=== PATIENT | male | born 1950 | race Caucasian/White ===

== ENCOUNTER 2016-05-25 14:21 | Emergency (ER) | payer OTHER ==
[~2016-05-25] VITALS: Ht 165.1 cm; Wt 62.7 kg
[~2016-05-25 14:21] MED LIST: ASPI-556 PO; CARB-101 PO; DOCU-119 PO; GABA-531 PO; METF500T4 PO; OMEP20 PO
[2016-05-25] MEDS ORDERED: LISI-661 PO (14:31)
[2016-05-25] MEDS ORDERED: TRAZ-144 PO (14:31)
[2016-05-25] MEDS ORDERED: FINA5TAB41 PO (14:31)
[2016-05-25] MEDS ORDERED: SELE5TAB10 PO (14:31)
[2016-05-25] MEDS ORDERED: GLIM2 PO (14:31)
[2016-05-25] MEDS ORDERED: SERT50TA12 PO (14:31)
[2016-05-25] MEDS ORDERED: TAMS0.4C32 PO (14:31)
[2016-05-25 14:32] LABS: GLUCOSE,POINT OF CARE 85 MG/DL (70-110)
[2016-05-25 15:28] LABS: BASOPHILS % (AUTO) 0.3 % (0.0-2.0); EOSINOPHILS % (AUTO) 1.6 % (1.0-6.0); HEMOGLOBIN 15.1 g/dL (13.5-17.5); LYMPHOCYTES # (AUTO) 1.1 K/uL (1.0-4.8); LYMPHOCYTES % (AUTO) 15.1 % (22.0-44.0); MEAN CORPUSCULAR HGB CONC 32.2 G/dL (31.0-37.0); MEAN CORPUSCULAR VOLUME 87 fL (80-100); MONOCYTES # (AUTO) 0.8 K/uL (0.1-1.0); MONOCYTES % (AUTO) 11.4 % (2.0-9.0); NEUTROPHILS # (AUTO) 5.2 K/uL (1.8-7.7); NEUTROPHILS % (AUTO) 71.6 % (40.0-70.0); PLATELET COUNT (AUTO) 260 K/uL (150-450); RED CELL DISTRIBUTION WIDTH 14.3 % (11.5-14.5); WHITE BLOOD COUNT (AUTO) 7.3 K/uL (4.5-11.0)
[2016-05-25 15:42] LABS: ANION GAP 16 mmol/L (8-16); CALCIUM, TOTAL 9.1 mg/dL (8.8-10.5); CARBON DIOXIDE 26 mmol/L (22-29); CHLORIDE 99 mmol/L (98-107); CREATININE 1.28 mg/dL (0.60-1.30); GLOMERULAR FILTR. RATE CALC 57 mL/min (>60); SODIUM SERUM 141 mmol/L (136-145); UREA NITROGEN, BLOOD 23 mg/dL (7-18)
[2016-05-25 15:48] LABS: ALANINE AMINOTRANSFERASE 12 U/L (12-78); ALBUMIN 3.9 g/dL (3.4-5.0); ASPARTATE AMINOTRANSFERASE 23 U/L (15-37); BILIRUBIN,TOTAL 0.6 mg/dL (0.1-1.0)
[2016-05-25] MEDS ORDERED: MORPHINE SULFATE 4 MG/ML SYRINGE IVP ONE (17:30)
[2016-05-25] MEDS ORDERED: ONDANSETRON HCL 4 MG/2 ML VIAL IVP ONE (17:30)
[2016-05-25] MEDS ORDERED: MORPHINE SULFATE 2 MG/ML SYRINGE IVP ONE (17:30)
[2016-05-25] MEDS ORDERED: SODIUM CHLORIDE 0.9% 1,000 ML IV ONE (17:30)
[2016-05-25 18:22] LABS: APPEARANCE,URINE CLEAR (CLEAR); GLUCOSE, URINE (UA) NEGATIVE (NEGATIVE); KETONES,URINE 40 mg/dL (NEGATIVE); LEUKOCYTE ESTERASE ,URINE NEGATIVE (NEGATIVE); OCCULT BLOOD,URINE NEGATIVE (NEGATIVE); PROTEIN,URINE POS 1+ (NEGATIVE)
[2016-05-25 18:25] LABS: ADD UA MICROSCOPIC NO
[2016-05-25 18:28] LABS: CREATINE KINASE MB 3.4 ng/mL (0-5); CREATINE KINASE, TOTAL 370 U/L (39-308)
[2016-05-25 20:19] VITALS: BP 132/80
== END 2016-05-25 20:23 | disposition home or self-care (01) ==
LOC: EMS 14:23
DX: G20 Parkinson's disease (principal); M60.9 Myositis, unspecified; R07.9 Chest pain, unspecified; E11.9 Type 2 diabetes mellitus without complications; T42.8X5A Adverse effect of antiparkinsonism drugs and other central muscle-tone depressants, initial encounter; I10 Essential (primary) hypertension; Z79.82 Long term (current) use of aspirin; Y92.89 Other specified places as the place of occurrence of the external cause
CPT/HCPCS: 36415; 71010; 80053; 81003; 82550; 82553; 82962; 84484; 85025; 86140; 93005; 96361; 96374; 96375; 99291; J2270; J2405; J7030

== ENCOUNTER 2017-10-20 11:58 | Inpatient (IN) | payer OTHER ==
[~2017-10-20] VITALS: Ht 152.4 cm; Wt 57.7 kg
[~2017-10-20 11:58] MED LIST changes: +FINA5TAB41 PO; +GLIM2 PO; +LISI-661 PO; -METF500T4 PO; +METF500T6 PO; +SELE5TAB10 PO; +SERT50TA12 PO; +TAMS0.4C32 PO; +TRAZ-219 PO
[2017-10-20 12:13] LABS: GLUCOSE,POINT OF CARE 188 MG/DL (70-110)
[2017-10-20 13:09] LABS: BASOPHILS % (AUTO) 0.3 % (0.0-2.0); EOSINOPHILS % (AUTO) 0.1 % (1.0-6.0); HEMATOCRIT 42.3 % (41-53); HEMOGLOBIN 14.6 g/dL (13.5-17.5); LYMPHOCYTES # (AUTO) 0.4 K/uL (1.0-4.8); LYMPHOCYTES % (AUTO) 4.1 % (22.0-44.0); MEAN CORPUSCULAR HEMOGLOBIN 29.4 pg (26.0-34.0); MEAN CORPUSCULAR HGB CONC 34.6 G/dL (31.0-37.0); MEAN CORPUSCULAR VOLUME 85 fL (80-100); MONOCYTES # (AUTO) 0.8 K/uL (0.1-1.0); MONOCYTES % (AUTO) 7.6 % (2.0-9.0); NEUTROPHILS # (AUTO) 9.4 K/uL (1.8-7.7); PLATELET COUNT (AUTO) 181 K/uL (150-450); RED BLOOD CELL COUNT(AUTO) 4.96 MIL/uL (4.50-5.90); RED CELL DISTRIBUTION WIDTH 14.7 % (11.5-14.5)
[2017-10-20 13:28] LABS: ANION GAP 11 mmol/L (8-16); B-TYPE NATRIURETIC PEPTIDE 15 pg/mL (0-100); CALCIUM, TOTAL 8.9 mg/dL (8.8-10.5); CARBON DIOXIDE 27 mmol/L (22-29); CHLORIDE 100 mmol/L (98-107); CREATININE 1.08 mg/dL (0.60-1.30); GLOMERULAR FILTR. RATE CALC > 60 mL/min (>60); GLUCOSE,RANDOM 154 mg/dL (70-110); POTASSIUM 4.3 mmol/L (3.5-5.1); SODIUM SERUM 138 mmol/L (136-145); UREA NITROGEN, BLOOD 14 mg/dL (7-18)
[2017-10-20 13:30] LABS: NEUTROPHILS % (AUTO) 87.9 % (40.0-70.0)
[2017-10-20] MEDS ORDERED: ASPIRIN 81 MG CHEWABLE TABLET PO ONE (13:30)
[2017-10-20] MEDS ORDERED: IBUPROFEN 600 MG TABLET PO ONE (13:30)
[2017-10-20 13:49] LABS: PROTHROMBIN TIME 10.1 SEC (9.4-11.6)
[2017-10-20 13:51] LABS: ALANINE AMINOTRANSFERASE 15 U/L (12-78); ALBUMIN 3.5 g/dL (3.4-5.0); ALKALINE PHOSPHATASE 67 U/L (46-116); ASPARTATE AMINOTRANSFERASE 15 U/L (15-37); BILIRUBIN,TOTAL 0.7 mg/dL (0.1-1.0); CREATINE KINASE MB 1.2 ng/mL (0-5); CREATINE KINASE, TOTAL 96 U/L (39-308); TOTAL PROTEIN, SERUM 7.4 g/dL (6.4-8.2)
[2017-10-20 14:16] LABS: APPEARANCE,URINE CLEAR (CLEAR); BILIRUBIN,URINE NEGATIVE (NEGATIVE); GLUCOSE, URINE (UA) 250 mg/dL (NEGATIVE); KETONES,URINE NEGATIVE (NEGATIVE); LEUKOCYTE ESTERASE ,URINE NEGATIVE (NEGATIVE); NITRATE,URINE NEGATIVE (NEGATIVE); OCCULT BLOOD,URINE NEGATIVE (NEGATIVE); PH,URINE 5.5 (5.0-8.0); PROTEIN,URINE POS 1+ (NEGATIVE); UROBILINOGEN,URINE 0.2 mg/dL (<=1.0)
[2017-10-20 14:32] LABS: BACTERIA,URINE Rare /HPF (None Seen); RBC,URINE 0-2 /HPF (0-2); SQUAMOUS EPITHELIAL CELL,UR Few /LPF (None Seen); WBC,URINE 0-2 /HPF (0-5)
[2017-10-20] MEDS ORDERED: METOPROLOL TARTRATE 25 MG TABLET PO ONE (16:00)
[2017-10-20] MEDS ORDERED: HEPARIN SODIUM 25000 UNITS/D5W 250 ML IV PRN (16:07)
[2017-10-20] MEDS ORDERED: HYDROCODONE/ACETAMINOPHEN 5-325 MG TABLET PO PRN (16:15)
[2017-10-20] MEDS ORDERED: ACETAMINOPHEN 325 MG TABLET PO PRN (16:15)
[2017-10-20] MEDS ORDERED: HEPARIN SODIUM,PORCINE 5,000 UNITS/ML VIAL IVP ONE ×2 (16:15→16:30)
[2017-10-20] MEDS ORDERED: BISACODYL 10 MG RECTAL RECTAL SUPPOSITORY PR PRN (16:15)
[2017-10-20] MEDS ORDERED: NITROGLYCERIN 2% (1 GM=INCH) PACKET TP ONE (16:15)
[2017-10-20] MEDS ORDERED: ONDANSETRON HCL 4 MG/2 ML VIAL IVP PRN (16:15)
[2017-10-20] MEDS ORDERED: MAGNESIUM HYDROXIDE SUSPENSION 30 ML UDCUP PO PRN (16:15)
[2017-10-20] MEDS ORDERED: MORPHINE SULFATE 2 MG/ML SYRINGE IVP PRN (16:15)
[2017-10-20] MEDS ORDERED: ZOLPIDEM TARTRATE 5 MG TABLET PO PRN (16:15)
[2017-10-20] MEDS ORDERED: HEPARIN SODIUM,PORCINE 5,000 UNITS/ML VIAL IVP PRN ×2 (16:15)
[2017-10-20 17:04] VITALS: BP 135/81
[2017-10-20] MEDS ORDERED: PNEUMOCOCCAL VACCINE POLYVALENT 0.5 ML VIAL [PPSV23] IM ONE (18:30)
[2017-10-20] MEDS ORDERED: SODIUM CHLORIDE 0.9% 250 ML IV ONE (18:45)
[2017-10-20 20:17] VITALS: BP 100/62
[2017-10-20] MEDS: TraZODone HCL 50 MG TABLET PO SCH (20:30)
[2017-10-20] MEDS: DOCUSATE SODIUM 100 MG CAPSULE PO SCH (20:30)
[2017-10-20] MEDS: TAMSULOSIN HCL 0.4 MG CAPSULE PO SCH (20:31)
[2017-10-20] MEDS: GABAPENTIN 300 MG CAPSULE PO SCH (20:31)
[2017-10-20] MEDS: SELEGILINE HCL 5 MG TABLET PO SCH (20:31)
[2017-10-20] MEDS: SERTRALINE HCL 50 MG TABLET PO SCH (20:31)
[2017-10-20] MEDS: CARBIDOPA/LEVODOPA 25-100 MG TABLET PO SCH (20:32)
[2017-10-21] VITALS (8 sets, daily range): BP systolic 89–114; BP diastolic 53–71
[2017-10-21 06:42] LABS: BASOPHILS % (AUTO) 0.2 % (0.0-2.0); EOSINOPHILS % (AUTO) 1.4 % (1.0-6.0); HEMATOCRIT 39.6 % (41-53); HEMOGLOBIN 13.3 g/dL (13.5-17.5); LYMPHOCYTES # (AUTO) 0.9 K/uL (1.0-4.8); LYMPHOCYTES % (AUTO) 13.2 % (22.0-44.0); MEAN CORPUSCULAR HEMOGLOBIN 29.5 pg (26.0-34.0); MEAN CORPUSCULAR HGB CONC 33.6 G/dL (31.0-37.0); MEAN CORPUSCULAR VOLUME 88 fL (80-100); MONOCYTES # (AUTO) 0.8 K/uL (0.1-1.0); NEUTROPHILS # (AUTO) 5.3 K/uL (1.8-7.7); NEUTROPHILS % (AUTO) 74.2 % (40.0-70.0); PLATELET COUNT (AUTO) 166 K/uL (150-450); RED BLOOD CELL COUNT(AUTO) 4.52 MIL/uL (4.50-5.90); RED CELL DISTRIBUTION WIDTH 14.2 % (11.5-14.5)
[2017-10-21 07:14] LABS: ANION GAP 6 mmol/L (8-16); CALCIUM, TOTAL 8.7 mg/dL (8.8-10.5); CARBON DIOXIDE 29 mmol/L (22-29); CHLORIDE 103 mmol/L (98-107); CHOL/HDL RATIO 2.5 (4.2-7.3); CHOLESTEROL 145 mg/dL (131-200); GLOMERULAR FILTR. RATE CALC > 60 mL/min (>60); GLUCOSE,RANDOM 126 mg/dL (70-110); HDL CHOLESTEROL 58 mg/dL (40-60); LDL CHOL (CALC.) 71 mg/dL (0-130); POTASSIUM 4.2 mmol/L (3.5-5.1); SODIUM SERUM 138 mmol/L (136-145); THYROID STIMULATING HORMONE 0.99 uIU/mL (0.36-3.74); TRIGLYCERIDES 79 mg/dL (15-150); UREA NITROGEN, BLOOD 19 mg/dL (7-18)
[2017-10-21] MEDS ORDERED: HEPARIN SODIUM,PORCINE 5,000 UNITS/ML VIAL IVP PRN ×3 (07:45)
[2017-10-21] MEDS ORDERED: HEPARIN SODIUM,PORCINE 5,000 UNITS/ML VIAL SQ SCH (08:00)
[2017-10-21] MEDS: HEPARIN SODIUM 25000 UNITS/D5W 250 ML IV PRN ×2 (08:01→16:37)
[2017-10-21 08:18] LABS: PROTHROMBIN TIME 10.4 SEC (9.4-11.6)
[2017-10-21] MEDS: DOCUSATE SODIUM 100 MG CAPSULE PO SCH ×2 (08:22→21:08)
[2017-10-21] MEDS: GABAPENTIN 300 MG CAPSULE PO SCH ×3 (08:22→21:08)
[2017-10-21] MEDS: FINASTERIDE 5 MG TABLET PO SCH (08:22)
[2017-10-21] MEDS: LISINOPRIL 10 MG TABLET PO SCH (08:22)
[2017-10-21] MEDS: OMEPRAZOLE 20 MG CAPSULE PO SCH (08:22)
[2017-10-21] MEDS: SELEGILINE HCL 5 MG TABLET PO SCH ×2 (08:23→21:07)
[2017-10-21] MEDS: ASPIRIN 81 MG CHEWABLE TABLET PO SCH (08:23)
[2017-10-21] MEDS: GLIMEPIRIDE 2 MG TABLET PO SCH (08:23)
[2017-10-21] MEDS: CARBIDOPA/LEVODOPA 25-100 MG TABLET PO SCH ×2 (08:24→21:08)
[2017-10-21] MEDS ORDERED: PANTOPRAZOLE SODIUM 40 MG DR TABLET PO SCH (09:00)
[2017-10-21] MEDS: ATORVASTATIN CALCIUM 40 MG TABLET PO SCH (10:59)
[2017-10-21] MEDS ORDERED: INSULIN LISPRO 100 UNITS/ML SQ PRN (14:15)
[2017-10-21] MEDS ORDERED: DEXTROSE 50%-WATER 25 GM/50 ML SYRINGE IVP PRN (14:15)
[2017-10-21 20:13] LABS: GLUCOMETER DEV NAME(LOC) 5S 2Q; GLUCOSE,POINT OF CARE 110 MG/DL (70-110)
[2017-10-21] MEDS: TraZODone HCL 50 MG TABLET PO SCH (21:08)
[2017-10-21] MEDS: SERTRALINE HCL 50 MG TABLET PO SCH (21:08)
[2017-10-21] MEDS: TAMSULOSIN HCL 0.4 MG CAPSULE PO SCH (21:08)
[2017-10-21 21:34] LABS: GLUCOMETER DEV NAME(LOC) 5S 2Q; GLUCOSE,POINT OF CARE 142 MG/DL (70-110)
[2017-10-22] VITALS (15 sets, daily range): BP systolic 102–145; BP diastolic 64–84
[2017-10-22 06:46] LABS: BASOPHILS % (AUTO) 0.4 % (0.0-2.0); HEMATOCRIT 42.3 % (41-53); HEMOGLOBIN 14.5 g/dL (13.5-17.5); LYMPHOCYTES # (AUTO) 1.1 K/uL (1.0-4.8); LYMPHOCYTES % (AUTO) 14.5 % (22.0-44.0); MEAN CORPUSCULAR HEMOGLOBIN 29.6 pg (26.0-34.0); MEAN CORPUSCULAR HGB CONC 34.3 G/dL (31.0-37.0); MEAN CORPUSCULAR VOLUME 86 fL (80-100); MONOCYTES # (AUTO) 0.8 K/uL (0.1-1.0); MONOCYTES % (AUTO) 10.3 % (2.0-9.0); NEUTROPHILS # (AUTO) 5.5 K/uL (1.8-7.7); NEUTROPHILS % (AUTO) 73.8 % (40.0-70.0); PLATELET COUNT (AUTO) 195 K/uL (150-450); RED CELL DISTRIBUTION WIDTH 14.4 % (11.5-14.5)
[2017-10-22 07:01] LABS: ANION GAP 7 mmol/L (8-16); CALCIUM, TOTAL 9.1 mg/dL (8.8-10.5); CARBON DIOXIDE 28 mmol/L (22-29); CHLORIDE 104 mmol/L (98-107); CREATININE 1.16 mg/dL (0.60-1.30); GLOMERULAR FILTR. RATE CALC > 60 mL/min (>60); GLUCOSE,RANDOM 130 mg/dL (70-110); SODIUM SERUM 139 mmol/L (136-145); UREA NITROGEN, BLOOD 16 mg/dL (7-18)
[2017-10-22] MEDS: GLIMEPIRIDE 2 MG TABLET PO SCH (08:00)
[2017-10-22] MEDS ORDERED: LIDOCAINE HCL/PF 1% 30 ML VIAL ONE (08:21)
[2017-10-22] MEDS ORDERED: SODIUM BICARBONATE 50 MEQ/50 ML VIAL ONE (08:21)
[2017-10-22] MEDS ORDERED: IOHEXOL 300 MG/ML 150 ML VIAL ONE (08:21)
[2017-10-22] MEDS ORDERED: HEPARIN SODIUM 1000 UNITS/NS 1,000 ML ONE (08:21)
[2017-10-22] MEDS ORDERED: HEPARIN SODIUM,PORCINE 1,000 UNITS/ML 10 ML VIAL ONE (09:10)
[2017-10-22] MEDS ORDERED: NITROGLYCERIN 50 MG/D5% WATER 0 ML ONE (09:10)
[2017-10-22] MEDS ORDERED: MIDAZOLAM HCL 2 MG/2 ML VIAL ONE (09:10)
[2017-10-22] MEDS ORDERED: VERAPAMIL HCL 2.5 MG/ML 2 ML VIAL ONE (09:10)
[2017-10-22] MEDS ORDERED: FentaNYL CITRATE-PF 100 MCG/2 ML VIAL ONE (09:10)
[2017-10-22] MEDS ORDERED: IOHEXOL 300 MG/ML 100 ML VIAL ONE (09:11)
[2017-10-22] MEDS ORDERED: SODIUM CHLORIDE 0.9% 500 ML IV ONE (09:15)
[2017-10-22] MEDS ORDERED: HEPARIN SODIUM 2,000 UNITS in HEPARIN SODIUM 1000 UNITS/NS 1,000 ML IARTER ONE (09:18)
[2017-10-22] MEDS ORDERED: LIDOCAINE 1% 30 ML/SOD BICARB 8.4% 4 ML SQ ONE (09:18)
[2017-10-22] MEDS ORDERED: IOHEXOL 300 MG/ML 150 ML VIAL IARTER ONE (09:21)
[2017-10-22] MEDS: DOCUSATE SODIUM 100 MG CAPSULE PO SCH ×2 (10:27→21:10)
[2017-10-22] MEDS: GABAPENTIN 300 MG CAPSULE PO SCH ×3 (10:27→21:10)
[2017-10-22] MEDS: ATORVASTATIN CALCIUM 40 MG TABLET PO SCH (10:27)
[2017-10-22] MEDS: CARBIDOPA/LEVODOPA 25-100 MG TABLET PO SCH ×4 (10:28→22:00)
[2017-10-22] MEDS: SELEGILINE HCL 5 MG TABLET PO SCH ×2 (10:28→21:10)
[2017-10-22] MEDS: OMEPRAZOLE 20 MG CAPSULE PO SCH (10:29)
[2017-10-22] MEDS: FINASTERIDE 5 MG TABLET PO SCH (10:30)
[2017-10-22] MEDS: ASPIRIN 81 MG CHEWABLE TABLET PO SCH (10:30)
[2017-10-22] MEDS: LISINOPRIL 10 MG TABLET PO SCH (10:41)
[2017-10-22] MEDS: METOPROLOL SUCCINATE 25 MG ER TABLET PO SCH (10:41)
[2017-10-22] MEDS ORDERED: ATORVASTATIN CALCIUM 40 MG TABLET PO SCH (11:00)
[2017-10-22] MEDS ORDERED: PNEUMOCOCCAL VACCINE POLYVALENT 0.5 ML VIAL [PPSV23] IM ONE (14:30)
[2017-10-22] MEDS ORDERED: CARB-38 PO (16:42)
[2017-10-22] MEDS: TAMSULOSIN HCL 0.4 MG CAPSULE PO SCH (21:10)
[2017-10-22] MEDS: SERTRALINE HCL 50 MG TABLET PO SCH (21:11)
[2017-10-22] MEDS: TraZODone HCL 50 MG TABLET PO SCH (21:11)
[2017-10-22 23:24] LABS: GLUCOMETER DEV NAME(LOC) 5S 2Q; GLUCOSE,POINT OF CARE 114 MG/DL (70-110)
[2017-10-22 23:24] LABS: GLUCOMETER DEV NAME(LOC) 5S 2Q; GLUCOSE,POINT OF CARE 104 MG/DL (70-110)
[2017-10-23 04:54] VITALS: BP 100/60
[2017-10-23] MEDS: CARBIDOPA/LEVODOPA 25-100 MG TABLET PO SCH ×4 (05:51→12:13)
[2017-10-23 05:57] LABS: BASOPHILS % (AUTO) 0.1 % (0.0-2.0); EOSINOPHILS % (AUTO) 0.1 % (1.0-6.0); HEMATOCRIT 42.2 % (41-53); HEMOGLOBIN 14.5 g/dL (13.5-17.5); LYMPHOCYTES # (AUTO) 0.7 K/uL (1.0-4.8); LYMPHOCYTES % (AUTO) 7.6 % (22.0-44.0); MEAN CORPUSCULAR HEMOGLOBIN 29.9 pg (26.0-34.0); MEAN CORPUSCULAR HGB CONC 34.2 G/dL (31.0-37.0); MEAN CORPUSCULAR VOLUME 87 fL (80-100); MONOCYTES # (AUTO) 0.9 K/uL (0.1-1.0); MONOCYTES % (AUTO) 10.5 % (2.0-9.0); NEUTROPHILS # (AUTO) 7.3 K/uL (1.8-7.7); NEUTROPHILS % (AUTO) 81.7 % (40.0-70.0); PLATELET COUNT (AUTO) 201 K/uL (150-450); RED BLOOD CELL COUNT(AUTO) 4.84 MIL/uL (4.50-5.90); RED CELL DISTRIBUTION WIDTH 14.3 % (11.5-14.5)
[2017-10-23 06:13] LABS: CALCIUM, TOTAL 8.8 mg/dL (8.8-10.5); CREATININE 1.22 mg/dL (0.60-1.30); POTASSIUM 3.8 mmol/L (3.5-5.1)
[2017-10-23 07:28] VITALS: BP 109/62
[2017-10-23] MEDS: GLIMEPIRIDE 2 MG TABLET PO SCH (07:58)
[2017-10-23] MEDS: DOCUSATE SODIUM 100 MG CAPSULE PO SCH (07:59)
[2017-10-23] MEDS: ASPIRIN 81 MG CHEWABLE TABLET PO SCH (07:59)
[2017-10-23] MEDS: ATORVASTATIN CALCIUM 40 MG TABLET PO SCH (08:00)
[2017-10-23] MEDS: GABAPENTIN 300 MG CAPSULE PO SCH (08:01)
[2017-10-23] MEDS: METOPROLOL SUCCINATE 25 MG ER TABLET PO SCH (08:01)
[2017-10-23] MEDS: OMEPRAZOLE 20 MG CAPSULE PO SCH (08:01)
[2017-10-23] MEDS: FINASTERIDE 5 MG TABLET PO SCH (08:01)
[2017-10-23] MEDS: LISINOPRIL 10 MG TABLET PO SCH (08:02)
[2017-10-23] MEDS: SELEGILINE HCL 5 MG TABLET PO SCH (08:03)
[2017-10-23] MEDS ORDERED: METO25XL PO (11:31)
[2017-10-23 11:40] VITALS: BP 127/72
[2017-10-24 21:49] LABS: GLUCOMETER DEV NAME(LOC) 5N 2S; GLUCOSE,POINT OF CARE 100 MG/DL (70-110)
[2017-10-24 21:49] LABS: GLUCOMETER DEV NAME(LOC) 5N 2S; GLUCOSE,POINT OF CARE 132 MG/DL (70-110)
[2017-10-24 21:49] LABS: GLUCOMETER DEV NAME(LOC) 5N 2S; GLUCOSE,POINT OF CARE 107 MG/DL (70-110)
== END 2017-10-23 12:35 | disposition home or self-care (01) | DRG 281 ==
LOC: EMS 11:59 → 5S 16:01
PROVIDERS: ADMIT Internal Medicine; ATTEND Internal Medicine
PROC: 4A023N7 Measurement of Cardiac Sampling and Pressure, Left Heart, Percutaneous Approach (ICD-10-PCS; principal; 2017-10-22)
PROC: B2111ZZ Fluoroscopy of Multiple Coronary Arteries using Low Osmolar Contrast (ICD-10-PCS; 2017-10-22)
PROC: B2151ZZ Fluoroscopy of Left Heart using Low Osmolar Contrast (ICD-10-PCS; 2017-10-22)
DX: I21.4 Non-ST elevation (NSTEMI) myocardial infarction (principal); I69.354 Hemiplegia and hemiparesis following cerebral infarction affecting left non-dominant side; I10 Essential (primary) hypertension; G20 Parkinson's disease; E78.5 Hyperlipidemia, unspecified; K21.9 Gastro-esophageal reflux disease without esophagitis; N40.0 Benign prostatic hyperplasia without lower urinary tract symptoms; I25.10 Atherosclerotic heart disease of native coronary artery without angina pectoris; E11.9 Type 2 diabetes mellitus without complications; Z79.84 Long term (current) use of oral hypoglycemic drugs; Z79.899 Other long term (current) drug therapy
CPT/HCPCS: 84443; 90471; 93005; 93306; 96374; 99285; J1644; J2250; J3010; J3490; J7050; Q9967

== ENCOUNTER 2020-01-26 07:37 | Day surgery (SDC) | payer OTHER ==
[2020-01-21 09:06] LABS: COVID AG,FIA SOURCE NASOPHARYNGEAL
[2020-01-21 09:06] LABS: BASOPHILS % (AUTO) 0.3 % (0.0-2.0); EOSINOPHILS % (AUTO) 2.3 % (1.0-6.0); HEMATOCRIT 42.6 % (41-53); HEMOGLOBIN 14.3 g/dL (13.5-17.5); LYMPHOCYTES # (AUTO) 1.1 K/uL (1.0-4.8); LYMPHOCYTES % (AUTO) 24.4 % (22.0-44.0); MEAN CORPUSCULAR HEMOGLOBIN 29.4 pg (26.0-34.0); MEAN CORPUSCULAR HGB CONC 33.7 G/dL (31.0-37.0); MEAN CORPUSCULAR VOLUME 88 fL (80-100); MONOCYTES # (AUTO) 0.5 K/uL (0.1-1.0); MONOCYTES % (AUTO) 10.9 % (2.0-9.0); NEUTROPHILS # (AUTO) 2.7 K/uL (1.8-7.7); NEUTROPHILS % (AUTO) 62.1 % (40.0-70.0); PLATELET COUNT (AUTO) 187 K/uL (150-450); RED BLOOD CELL COUNT(AUTO) 4.87 MIL/uL (4.50-5.90); RED CELL DISTRIBUTION WIDTH 13.7 % (11.5-14.5)
[2020-01-21 09:28] LABS: HEMOGLOBIN A1C 6.4 % (3.8-5.6)
[2020-01-21 09:35] LABS: ANION GAP 6 mmol/L (8-16); CALCIUM, TOTAL 9.3 mg/dL (8.8-10.5); CARBON DIOXIDE 29 mmol/L (22-29); CHLORIDE 102 mmol/L (98-107); CREATININE 1.09 mg/dL (0.60-1.30); GLOMERULAR FILTR. RATE CALC > 60 mL/min (>60); GLUCOSE,RANDOM 110 mg/dL (70-110); POTASSIUM 4.4 mmol/L (3.5-5.1); SODIUM SERUM 137 mmol/L (136-145); UREA NITROGEN, BLOOD 14 mg/dL (7-18)
[~2020-01-26] VITALS: Ht 160 cm; Wt 59.0 kg
[~2020-01-26 07:37] MED LIST changes: +AMAN100C12 PO; -CARB-101 PO; +CARB-38 PO; +CARB1TAB42 PO; +CeFAZolin 2 GM/DEXTROSE 50 ML IV ONE; -DOCU-119 PO; +FINA-27 PO; -FINA5TAB41 PO; -GABA-531 PO; +IBUP-2070 PO; -METF500T6 PO; -OMEP20 PO; +RINGERS SOLUTION,LACTATED 1,000 ML IV ONE; +ROPI1TAB13 PO; +SELE PO; -SELE5TAB10 PO; +TAMS-13 PO; -TAMS0.4C32 PO; -TRAZ-219 PO; +TRAZ-252 PO
[2020-01-26] MEDS ORDERED: DEXAMETHASONE SOD PHOS 4 MG/ML VIAL IVP ONE (07:38)
[2020-01-26] MEDS ORDERED: ROCURONIUM BROMIDE 10 MG/ML 5 ML VIAL IVP ONE (07:38)
[2020-01-26] MEDS ORDERED: FentaNYL CITRATE-PF 100 MCG/2 ML VIAL IVP ONE (07:38)
[2020-01-26] MEDS ORDERED: ONDANSETRON HCL 4 MG/2 ML VIAL IVP ONE (07:38)
[2020-01-26] MEDS ORDERED: SUCCINYLCHOLINE CHLORIDE 20 MG/ML 10 ML VIAL IVP ONE (07:38)
[2020-01-26] MEDS ORDERED: CeFAZolin 2 GM/DEXTROSE 50 ML IV SCH (08:00)
[2020-01-26] MEDS ORDERED: SODIUM CHLORIDE 0.9% 1,000 ML ONE (08:23)
[2020-01-26] MEDS ORDERED: BUPIVACAINE HCL/PF 0.5% 30 ML VIAL ONE (08:27)
[2020-01-26] MEDS ORDERED: LIDOCAINE 2%/EPI 1:200,000/PF 20 ML VIAL ONE (08:27)
[2020-01-26 08:34] LABS: GLUCOMETER DEV NAME(LOC) SDS.; GLUCOSE,POINT OF CARE 112 MG/DL (70-110)
[2020-01-26 08:44] LABS: INR 1.1 (0.9-1.1); PROTHROMBIN TIME 11.1 SEC (9.4-11.6)
[2020-01-26] MEDS ORDERED: FentaNYL CITRATE-PF 100 MCG/2 ML VIAL IVP PRN (10:00)
[2020-01-26] MEDS ORDERED: HYDROmorphone 2 MG/ML SYRINGE IVP PRN (10:00)
[2020-01-26] MEDS ORDERED: MEPERIDINE-PF 25 MG/ML VIAL IVP PRN (10:00)
[2020-01-26] MEDS ORDERED: RINGERS SOLUTION,LACTATED 1,000 ML IV ONE ×2 (10:00→11:19)
[2020-01-26] MEDS ORDERED: BUPIVACAINE HCL 0.5% 50 ML VIAL INJ ONE (11:25)
[2020-01-26] MEDS ORDERED: LIDOCAINE 2%/EPI 1:200,000/PF 20 ML VIAL INJ ONE (11:25)
[2020-01-26] MEDS ORDERED: ACETAMINOPHEN 500 MG TABLET PO PRN (12:30)
[2020-01-26] MEDS ORDERED: IBUPROFEN 800 MG TABLET PO PRN (12:30)
== END 2020-01-26 13:50 | disposition home or self-care (01) ==
LOC: SURGERY 07:37
PROVIDERS: ATTEND Surgery
DX: K40.90 Unilateral inguinal hernia, without obstruction or gangrene, not specified as recurrent (principal); D17.6 Benign lipomatous neoplasm of spermatic cord; G20 Parkinson's disease; Z79.899 Other long term (current) drug therapy; Z79.01 Long term (current) use of anticoagulants; Z20.828 Contact with and (suspected) exposure to other viral communicable diseases; Z98.890 Other specified postprocedural states
CPT/HCPCS: 36415 ×2; 49650; 80048; 82962; 83036; 85025; 85610; 85730; 87426; 88304; 93005; C1781; C9803; J0330; J0690; J1100; J2405; J3010; J3490 ×2; J7030; J7120